=== PATIENT | female | born 1950 | race Two or more races ===

== ENCOUNTER → 2017-09-20 | Day surgery (SDC) | payer OTHER ==
[~2017-09-20] MED LIST: ALDACTONE25 MG PO; GABAPENTIN600 MG PO; HYDRODIURIL12.5 MG PO; KEPPRA500 MG PO; LISINOPRIL20 MG PO; NORVASC5 MG PO; ULTRACET PO; VENTOLIN HFA18 GM IH; ZANTAC300 MG PO
== END | disposition home or self-care (01) ==
LOC: ADM 09-18 14:15 → CIR.AMB 06:18 → AMB-ENDOS 14:15
DX: R15.9 Full incontinence of feces (principal)
CPT/HCPCS: 64581; 64590; C1767; C1778

== ENCOUNTER 2017-10-04 06:15 | Day surgery (SDC) | payer OTHER | END 2017-10-04 10:05 | disposition home or self-care (01) | LOC: CIR.AMB 06:15 | DX: R15.9 Full incontinence of feces (principal) | CPT/HCPCS: 64590; C1767 ==

== ENCOUNTER 2022-10-03 12:09 | Outpatient (CLI) | payer OTHER | END 2022-10-03 12:22 | disposition home or self-care (01) | LOC: LAB 12:09 | PROVIDERS: ATTEND Surgery | DX: R15.9 Full incontinence of feces (principal); K58.0 Irritable bowel syndrome with diarrhea; Z03.818 Encounter for observation for suspected exposure to other biological agents ruled out; R19.11 Absent bowel sounds; R19.4 Change in bowel habit; I10 Essential (primary) hypertension ==

== ENCOUNTER 2022-10-05 08:24 | Day surgery (SDC) | payer OTHER ==
[~2022-10-05] VITALS: Ht 170.2 cm; Wt 90.7 kg
[2022-10-05] MEDS ORDERED: TRAM1TAB98 PO (17:26)
== END 2022-10-05 19:45 | disposition home or self-care (01) ==
LOC: CIR.AMB 08:24
PROVIDERS: ATTEND Surgery
DX: R15.9 Full incontinence of feces (principal); K58.0 Irritable bowel syndrome with diarrhea; R19.4 Change in bowel habit; Z20.822 Contact with and (suspected) exposure to COVID-19; I10 Essential (primary) hypertension
CPT/HCPCS: 64590; 95972; C1767